=== PATIENT | female | born 1940 | race Caucasian/White ===

== ENCOUNTER 2023-05-09 09:57 | Observation (INO) | payer MEDICARE ==
[2023-05-09] VITALS (9 sets, daily range): BP systolic 131–187; BP diastolic 54–89
[~2023-05-09] VITALS: Ht 162.6 cm; Wt 40.8 kg
[2023-05-09 10:55] LABS: BASOPHILS ABSOLUTE AUTO 0.07 K/mm3 (0.00-0.23); BASOPHILS PERCENT AUTO 1 % (0-2); EOSINOPHILS ABSOLUTE AUTO 0.18 K/mm3 (0.00-0.68); EOSINOPHILS PERCENT AUTO 2 % (0-6); Hemoglobin 13.6 g/dL (11.5-16.0); IMMATURE GRAN ABSOLUTE AUTO 0.04 K/mm3 (0.00-0.10); IMMATURE GRAN PERCENT AUTO 0 % (0-1); LYMPHOCYTES ABSOLUTE AUTO 3.99 K/mm3 (0.84-5.20); LYMPHOCYTES PERCENT AUTO 43 % (21-46); MONOCYTES ABSOLUTE AUTO 0.55 K/mm3 (0.16-1.47); MONOCYTES PERCENT AUTO 6 % (4-13); Mean Corpuscular HGB 29.9 pg (26.0-34.0); Mean Corpuscular Volume 88 fL (80-100); Mean Platelet Volume 10.9 fL (9.1-12.4); NEUTROPHILS ABSOLUTE AUTO 4.53 K/mm3 (1.96-9.15); NEUTROPHILS PERCENT AUTO 49 % (41-73); Platelet Count 388 K/mm3 (150-400); RDW Coefficient Variation 13.5 % (11.7-14.2); Red Blood Cell Count 4.55 M/mm3 (3.80-5.20); White Blood Cell Count 9.36 K/mm3 (4.00-11.30)
[2023-05-09 11:16] LABS: Albumin, Blood 3.7 g/dL (3.4-5.0); Albumin/Globulin Ratio 0.9 (0.8-1.8); Bilirubin, Total 0.3 mg/dL (0.1-1.0); Bun/Creatinine Ratio 18.9 (12.0-20.0); Calcium, Blood 8.9 mg/dL (8.5-10.1); Creatinine, Blood 1.11 mg/dL (0.40-1.00); Potassium, Blood 3.2 mmol/L (3.5-5.5); Total Protein, Blood 7.7 g/dL (6.4-8.2)
[2023-05-09 13:47] LABS: Source, Urine Straight Cath
[2023-05-09 13:51] LABS: Bilirubin, Urine Neg (Neg); Blood, Urine 3+ (Neg); Color, Urine Yellow (P-Yellow); Glucose Qualitative, Urine 1+ (Neg); Ketones, Urine Neg (Neg); Leukocyte Esterase, Urine Neg (Neg); Nitrite, Urine Neg (Neg); Protein, Urine 3+ (Neg); Urobilinogen, Urine NORM (Normal)
[2023-05-09 13:59] LABS: Appearance, Urine Hazy (Clear)
[2023-05-09 14:03] LABS: Amorphous Light (0-Heavy); Bacteria Few /hpf; Mucus Light (0-Heavy); Red Blood Cells, Urine 0-2 /hpf (0-2); Squamous Epithelial Cells Rare /hpf (Few); White Blood Cells, Urine 0-2 /hpf (0-5)
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
--- NOTE | 2023-05-09 16:16 | NUR ---
ADMIT NOTE patient arrived to pcu approx 1500. patient transfered to pcu via slider sheet. patient responds to verbal stimuli, nods head, and follows commands. is aware of family at bedside. patient is current postictal. patient had multiple seizures today and one witness one at the hospital in imaging. see admit assessment for detials, it is not complete the home safety and intimate partner section due to patient just nodding head and not being fully alert due to postictal phase, have RN reassess when patient is alert and not postictal. this rn informed furnace charger denia, who said to write a note and pass it along to the night nurse. otherwise admit assessment is complete. med rec needs to be done, since family does not remember name of blood pressure medication. family states patient is not compliant with medications. family at bedside. patient baseline is indepdent and alert and oriented to time place situation date, etc, per family. patient has seizure pads in place. no seizure like activity since arriving to pcu. suction hooked up. this rn oriented family to call light. plan of care is up to date at this time. see previous notes.
--- NOTE | 2023-05-09 17:16 | NUR ---
shift summary no acute changes this shift. vitals stable. plan of care is up to date.
--- NOTE | 2023-05-09 20:23 | NUR ---
ASSUMED PT CARE FROM RN ON . PT APPEARS TO BE SLEEPING DURING REPORTS. THIS HAS BEEN PT STATE SINCE ADMIT PER RN ON . NOW PT WAKING, PULLING AT TELE BOX AND IV LINES. ASKING "WHY AM I HERE". PT REORIENTED. UNABLE TO GIVE ANY HISTORY AT THIS TIME. CAMERA IN ROOM FOR PT SAFETY. SEIZURE PRECAUTIONS IN PLACE. CALL LIGHT IN REACH. BED ALARM ON.
[2023-05-10] VITALS: BP 154/77
[2023-05-10 04:13] LABS: BASOPHILS ABSOLUTE AUTO 0.04 K/mm3 (0.00-0.23); BASOPHILS PERCENT AUTO 0 % (0-2); EOSINOPHILS ABSOLUTE AUTO 0.03 K/mm3 (0.00-0.68); EOSINOPHILS PERCENT AUTO 0 % (0-6); Hematocrit 31.8 % (33.0-51.0); Hemoglobin 10.9 g/dL (11.5-16.0); IMMATURE GRAN ABSOLUTE AUTO 0.03 K/mm3 (0.00-0.10); IMMATURE GRAN PERCENT AUTO 0 % (0-1); LYMPHOCYTES ABSOLUTE AUTO 1.79 K/mm3 (0.84-5.20); LYMPHOCYTES PERCENT AUTO 17 % (21-46); MONOCYTES ABSOLUTE AUTO 0.61 K/mm3 (0.16-1.47); MONOCYTES PERCENT AUTO 6 % (4-13); Mean Corpuscular HGB 30.3 pg (26.0-34.0); Mean Corpuscular HGB Conc 34.3 g/dL (31.5-36.5); Mean Corpuscular Volume 88 fL (80-100); Mean Platelet Volume 10.2 fL (9.1-12.4); NEUTROPHILS ABSOLUTE AUTO 7.85 K/mm3 (1.96-9.15); NEUTROPHILS PERCENT AUTO 76 % (41-73); Platelet Count 289 K/mm3 (150-400); RDW Coefficient Variation 13.8 % (11.7-14.2); RDW Standard Deviation 44.8 fL (35.1-46.3); White Blood Cell Count 10.35 K/mm3 (4.00-11.30)
[2023-05-10 05:03] LABS: Alanine Aminotransfer (ALT/SGP 17 U/L (12-78); Albumin, Blood 2.9 g/dL (3.4-5.0); Albumin/Globulin Ratio 0.9 (0.8-1.8); Alk Phos 75 U/L (50-136); Anion Gap 6 mmol/L (6-16); Aspartate Aminotrans (AST/SGOT 22 U/L (12-37); Bilirubin, Total 0.5 mg/dL (0.1-1.0); Blood Urea Nitrogen 20 mg/dL (8-24); Bun/Creatinine Ratio 20.7 (12.0-20.0); CHOL/HDL RATIO 3.6; CO2, Blood 27 mmol/L (21-32); Calcium, Blood 8.4 mg/dL (8.5-10.1); Chloride, Blood 109 mmol/L (98-108); Cholesterol 163 mg/dL (50-200); Creatinine, Blood 0.97 mg/dL (0.40-1.00); Free Thyroxine 0.93 ng/dL (0.70-1.60); Globulin, Blood 3.2 g/dL (2.2-4.0); Glomerular Filtration Rate 58 (60-); Glucose, Blood 93 mg/dL (70-99); HDL Cholesterol 45 mg/dL (>39); LDL/HDL RATIO 2.1; Low Density Lipoprotein Chol 96 mg/dL (0-110); Potassium, Blood 3.9 mmol/L (3.5-5.5); Sodium, Blood 142 mmol/L (136-145); Total Protein, Blood 6.1 g/dL (6.4-8.2); Triglycerides 112 mg/dL (30-160); Triiodothyronine, Free 1.36 pg/mL (2.18-3.98); Very Low Density Lipoprot Chol 22 mg/dL (6-32)
[2023-05-10 05:44] VITALS: BP 157/80
--- NOTE | 2023-05-10 05:51 | NUR ---
SHIFT SUMMARY: PT BECOMING MORE RESPONSIVE NOT NOISE. CONTINUES TO DENY REMEMBERING WHERE SHE IS AND WHY SHE IS HERE. COOPERATIVE BUT FORGETFUL. NEEDS FREQUENT REMINDERS NOT TO PULL AT TELE LINES AND CLOTHING. REPSONDS TO SIMPLES QUESTIONS. CALL LIGHT IN REACH. CAMERA IN ROOM. BED IN LOW POSITION.
[2023-05-10 07:39] VITALS: BP 177/81
[2023-05-10 08:30] VITALS: BP 162/67
[2023-05-10 11:32] VITALS: BP 155/62
[2023-05-10 11:52] VITALS: BP 143/76
--- NOTE | 2023-05-10 14:25 | NUR ---
KRISTIAN IS ALERT AND COMMUNICATING WITH HER FAMILY, SHE IS ABLE TO MAKE HER NEEDS KNOWN. SHE IS IN THE RECLINER, WAS ABLE TO HAVE A HALF SANDWICH AND DRINK SOME JUICE. SHE IS ASKING ABOUT GOING TO MRI, WE JUST HEARD BACK FROM THE TECH AND SHE WILL BE GOING DOWN SHORTLY. THIS IS COMMUNICATED WITH THE FAMILY. NO SEIZURE ACTIVITY NOTED.
[2023-05-10] MEDS ORDERED: ASPI81CH PO (16:39)
[2023-05-10] MEDS ORDERED: KEPPRA250 M1 PO (16:40)
[2023-05-10] MEDS ORDERED: ATOR40TA PO (16:40)
[2023-05-10] MEDS ORDERED: LOSA50 PO (16:40)
[2023-05-10] MEDS ORDERED: NICO21TP TOP (16:41)
--- NOTE | 2023-05-10 17:40 | NUR ---
KRISTIAN WAS GIVEN HER DISCHARGE INSTRUCTIONS WITH HER GRANDSON IN ATTENDANCE. QUESTIONS WERE ASKED AND ANSWERED. SHE WAS PROVIDED WITH PAPER COPY AND A FOLDER CLEARLY LABELED DISCHARGE INSTRUCTIONS. SHE WAS REMINDED TO REVIEW THE INSTRUCTIONS SHOULD SHE HAVE ANY QUESTIONS. SHE WAS ASSISTED TO THE WHEELCHAIR AND WAS ESCORTED TO THE VEHICLE DRIVEN BY HER GRANDSON. SHE WAS EXCITED AND A BIT ANXIOUS TO RETURN HOME. SHE WAS REMINDED THAT IT WAS IMPORTANT TO TAKE HER MEDICATION REGULARLY.
--- NOTE | 2023-05-10 18:44 | NUR ---
LAURENCE CALLING WITH MEDICATION QUESTIONS, THIS IS REASON FOR CHART BEING ACCESSED
== END 2023-05-10 17:35 | disposition home or self-care (01) ==
LOC: ER 09:57 → EDBD 14:39 → PCU 14:39
PROVIDERS: Family Medicine; ADMIT Hospitalist
DX: R56.9 Unspecified convulsions (principal); Z86.73 Personal history of transient ischemic attack (TIA), and cerebral infarction without residual deficits; Z88.5 Allergy status to narcotic agent; E87.6 Hypokalemia; E03.9 Hypothyroidism, unspecified
CPT/HCPCS: 36415; 51701; 70450; 70551; 80053; 80061; 81001; 83735; 84439; 84443; 84481; 85025; 92610; 93005; 93010; 96365-59; 96366; 96366-59; 96367-59; 96372; 96375; 96375-59; 96376; 97110; 97116; 97161; 99291-25; G0378; J0360; J1650; J1953; J2405; J3480; J7050; J7120